=== PATIENT | female | born 1980 | race African-American/Black ===

== ENCOUNTER 2016-12-07 09:56 | Emergency (ER) | payer BC ==
[2016-12-07 10:32] LABS: ABSOLUTE LYMPHOCYTES (AUTO) 1.8 10^3/uL (0.5-4.7); ABSOLUTE MONOCYTES (AUTO) 0.4 10^3/uL (0.1-1.4); ABSOLUTE NEUT (AUTO) 3.5 10^3/uL (1.7-8.2); BASOPHILS % (AUTO) 0.3 % (0-2); EOSINOPHILS % (AUTO) 0.4 % (0-6); HEMATOCRIT 32.5 % (36.0-47.0); HEMOGLOBIN 10.4 g/dL (12.0-15.5); HGB HCT DIFFERENCE -1.3; LYMPHOCYTES % (AUTO) 31.3 % (13-45); MEAN CORPUSCULAR HEMOGLOBIN 26.3 pg (27.0-33.4); MEAN CORPUSCULAR HGB CONC 32.1 g/dL (32.0-36.0); MEAN CORPUSCULAR VOLUME 82 fl (80-97); RED BLOOD COUNT 3.96 10^6/uL (3.72-5.28); RED CELL DISTRIBUTION WIDTH 14.5 % (11.5-14.0); WHITE BLOOD COUNT 5.8 10^3/uL (4.0-10.5)
--- NOTE | 2016-12-07 10:54 | ER Document Report ---
ED Seizure - General Time seen by provider: 11:07 Mode of Arrival: Medic Information source: Patient, Emergency Med Personnel TRAVEL OUTSIDE OF THE [place] IN LAST 30 DAYS: No - HPI Patient complains to provider of: History of seizures Quality of pain: Throbbing Current seizure medications: Other - Depakote Post-ictal symptoms: Headache, Other - jaw pain Injuries: None <NATALIO STEINER - Last Filed: 12/07/16 11:33> <SAMMIE TA - Last Filed: 12/07/16 13:16> - General Chief Complaint: Seizure Stated Complaint: POSSIBLE SEIZURE Notes: Patient is a 36 year old female presenting to the emergency department for a seizure. Patient had multiple seizures at work today. Patient was alert upon EMS arrival and then continued to have more seizures. EMS administered 2.5 versed IM, 2 mg versed IV and valium 10mg ID, prior to arrival. Patient now complains of some jaw pain and a headache which she states is normal for her after having a seizure. Patient is taking Depakote for her seizures. Patient has not had a seizure for a long time; [facility]'s last record of a seizure for this patient was September 2015. Patient states she also takes sleeping pills and she possibly had not gotten enough sleep last night. Patient's primary care physician is Dr. Elmore. Patient complains of no injuries or pain other than the headache and jaw pain. Patient is allergic to lisinopril. (NATALIO STEINER) - Related Data Allergies/Adverse Reactions: lisinopril [Lisinopril] Allergy (Verified 02/24/16 12:32) swelling IVP dye Allergy (Uncoded 02/24/16 12:32) Hives Past Medical History - General Information source: Patient, Emergency Med Personnel - Social History Smoking Status: Unknown if Ever Smoked Family History: DM, Hypertension - Past Medical History Cardiac Medical History: Reports: Hx Hypertension Neurological Medical History: Reports: Hx Seizures Endocrine Medical History: Reports: Hx Diabetes Mellitus Type 2 Psychiatric Medical History: Reports: Hx Bipolar Disorder, Hx Depression Past Surgical History: Reports: Hx Breast Surgery - L lumpectomy, Hx Cholecystectomy, Hx Gastric Bypass Surgery - 2013, Hx Tubal Ligation - Immunizations Hx Diphtheria, Pertussis, Tetanus Vaccination: Yes <NATALIO STEINER - Last Filed: 12/07/16 11:33> Review of Systems - Review of Systems Constitutional: No symptoms reported EENT: See HPI, Other - Jaw pain Cardiovascular: No symptoms reported Respiratory: No symptoms reported Gastrointestinal: No symptoms reported Genitourinary: No symptoms reported Female Genitourinary: No symptoms reported Musculoskeletal: No symptoms reported Skin: No symptoms reported Hematologic/Lymphatic: No symptoms reported Neurological/Psychological: See HPI, Seizure, Headaches -: Yes All other systems reviewed and negative <NATALIO STEINER - Last Filed: 12/07/16 11:33> Physical Exam - Vital signs Interpretation: Normal - General General appearance: Appears well, Alert In distress: Mild - HEENT Head: Normocephalic, Atraumatic, Other - TMJ areas are slightly tender Eyes: Normal Pupils: PERRL Mouth/Lips: Normal, Other - tongue is not chewed or cut into Mucous membranes: Moist Pharynx: Normal - Respiratory Respiratory status: No respiratory distress Chest status: Nontender Breath sounds: Normal Chest palpation: Normal - Cardiovascular Rhythm: Regular Heart sounds: Normal auscultation Murmur: No - Abdominal Inspection: Obese Distension: No distension Bowel sounds: Normal Tenderness: Nontender Organomegaly: No organomegaly - Back Back: Normal, Nontender - Extremities General upper extremity: Normal inspection, Normal ROM, Normal strength General lower extremity: Normal inspection, Normal ROM, Normal strength. No: Edema - Neurological Neuro grossly intact: Yes Cognition: Normal Orientation: AAOx4 [place]ila Coma Scale Eye Opening: Spontaneous [place] Coma Scale Verbal: Oriented [place] Coma Scale Motor: Obeys Commands [place] Coma Scale Total: 15 Speech: Normal - Psychological Associated symptoms: Normal affect, Normal mood - Skin Skin Temperature: Warm Skin Moisture: Dry <NATALIO STEINER - Last Filed: 12/07/16 11:33> <SAMMIE TA - Last Filed: 12/07/16 13:16> - Vital signs Vitals: Resp 19 12/07/16 09:59 (NATALIO STEINER) (SAMMIE TA) Course - Laboratory Result Diagrams: 12/07/16 10:05 12/07/16 10:05 <NATALIO STEINER - Last Filed: 12/07/16 11:33> - Laboratory Result Diagrams: 12/07/16 10:05 12/07/16 10:05 <SAMMIE TA - Last Filed: 12/07/16 13:16> - Vital Signs Vital signs: Temp Pulse Resp BP Pulse Ox 98.3 F 82 14 120/94 H 99 12/07/16 10:17 12/07/16 10:17 12/07/16 11:01 12/07/16 11:01 12/07/16 11:01 (NATALIO STEINER) (SAMMIE TA) - Laboratory Laboratory results interpreted by me: 12/07/16 12/07/16 12/07/16 10:05 10:05 10:05 Hgb 10.4 L Hct 32.5 L MCH 26.3 L RDW 14.5 H Carbon Dioxide 21 L Glucose 126 H Urine Protein Urine Nitrite Ur Leukocyte Esterase Valproic Acid < 10.0 L 12/07/16 11:10 Hgb Hct MCH RDW Carbon Dioxide Glucose Urine Protein 30 H Urine Nitrite POSITIVE H Ur Leukocyte Esterase SMALL H Valproic Acid (NATALIO STEINER) (SAMMIE TA) Discharge <NATALIO STEINER - Last Filed: 12/07/16 11:33> <SAMMIE TA - Last Filed: 12/07/16 13:16> - Discharge Clinical Impression: Seizure, Seizure secondary to subtherapeutic anticonvulsant medication Condition: Stable Disposition: HOME, SELF-CARE Additional Instructions: Seizure, Known Epileptic: You have had a seizure. Seizures may "break through" in an epileptic due to stress of infection or injury, a change in blood chemistry, or drug and alcohol use. Another common cause is failure to take medication as prescribed. Your doctor has evaluated your situation for the likely cause of this seizure. It is important that you follow his advice concerning any medication changes and follow-up care. Further testing of anti-seizure medication levels in your blood may be necessary. If you have a racing driver's license, it's important that you DO NOT DRIVE until given permission by your physician. This seizure must be reported to the racing driver 's license bureau. Call the doctor or return if seizures recur, or if new or unusual symptoms arise -- such as severe headache, confusion, excessive sleepiness, local weakness or numbness, neck stiffness, or fever. //////////////////////////////////////////////////////////////////////////////// //////////////////////////////////////////////////////////////////////////////// //////////////// Your Depakote level was too low to detect by the lab today. This would explain you having a seizure. Be sure to take your Depakote every day as prescribed. Follow-up with Dr. Elmore this week for recheck. RETURN TO THE EMERGENCY ROOM IF ANY NEW OR WORSENING SYMPTOMS. Referrals: PING NAJERA MD [Primary Care Provider] - Follow up as needed Scribe Attestation: 12/07/16 13:16 I personally performed the services described in the documentation, reviewed and edited the documentation which was dictated to the scribe in my presence, and it accurately records my words and actions. (SAMMIE TA) Scribe Documentation - Scribe Written by Scribyina:: Natalio Steiner 12/07/16 11:30 acting as scribe for :: Ale <NATALIO STEINER - Last Filed: 12/07/16 11:33>
[2016-12-07 10:56] LABS: ALBUMIN 4.6 g/dL (3.5-5.0); ANION GAP 19 (5-19); BLOOD UREA NITROGEN 16 mg/dL (7-20); CALCIUM 9.4 mg/dL (8.4-10.2); CARBON DIOXIDE 21 mmol/L (22-30); CHLORIDE 102 mmol/L (98-107); CREATININE RESULT 0.71 mg/dL (0.52-1.25); GLUCOSE 126 mg/dL (75-110); POTASSIUM 3.7 mmol/L (3.6-5.0); SODIUM 141.6 mmol/L (137-145); TOTAL PROTEIN 8.1 g/dL (6.3-8.2)
[2016-12-07 10:59] LABS: ALANINE AMINOTRANSFERASE 17 U/L (9-52); ALCOHOL < 10 mg/dL (NONE DETECTED); ALKALINE PHOSPHATASE 56 U/L (38-126); ASPARTATE AMINO TRANSFERASE 27 U/L (14-36); BILIRUBIN,TOTAL 0.7 mg/dL (0.2-1.3); MAGNESIUM 1.7 mg/dL (1.6-2.3)
[2016-12-07] MEDS ORDERED: KETOROLAC TROMETHAMINE INJ/PF 30 MG/1 ML SDV IV ONE (11:13)
[2016-12-07 11:19] LABS: ADD ON TESTING BLD IN LAB ACKNOWLEDGE
[2016-12-07 11:32] LABS: VALPROIC ACID < 10.0 ug/mL (50.0-120.0)
[2016-12-07 11:40] LABS: APPEARANCE,URINE CLOUDY; BILIRUBIN,URINE NEGATIVE (NEGATIVE); GLUCOSE, URINE NEGATIVE (NEGATIVE); KETONES,URINE NEGATIVE (NEGATIVE); LEUKOCYTE ESTERASE,URINE SMALL (NEGATIVE); NITRITE,URINE POSITIVE (NEGATIVE); PROTEIN,URINE 30 mg/dL (NEGATIVE); URINE SPECIFIC GRAVITY 1.023; UROBILINOGEN,URINE NEGATIVE mg/dL (<2.0)
[2016-12-07 11:45] LABS: URINE BARBITURATES SCREEN NEGATIVE; URINE METHADONE SCREEN NEGATIVE; URINE OPIATES LOW NEGATIVE; URINE PHENCYCLIDINE SCREEN NEGATIVE
[2016-12-07] MEDS ORDERED: VALPROATE SODIUM INJ/PF 500 MG/5 ML SDV IV ONE (12:15)
[2016-12-07 14:00] VITALS: BP 127/84
--- NOTE | 2016-12-07 18:26 | EKG REPORT ---
SEVERITY:- NORMAL ECG - SINUS RHYTHM : Confirmed by: Thiago Flores MD 07-Dec-2016 18:25:37
== END 2016-12-07 14:03 | disposition home or self-care (01) ==
LOC: ER 09:56
DX: R56.9 Unspecified convulsions (principal); R68.84 Jaw pain; R51 Headache; E11.9 Type 2 diabetes mellitus without complications; I10 Essential (primary) hypertension; Z88.8 Allergy status to other drugs, medicaments and biological substances; Z91.041 Radiographic dye allergy status; Z79.899 Other long term (current) drug therapy
CPT/HCPCS: 93005; 99291; 36415; 80307 ×2; 83735; 84703; 85025; 80053; 81001; 80164; 93010; J1885; J3490

== ENCOUNTER 2017-02-23 09:53 | Emergency (ER) | payer BC ==
[2017-02-23] MEDS ORDERED: PHENYTOIN SODIUM INJ/PF 250 MG/5 ML SDV ONE (10:00)
[2017-02-23] MEDS ORDERED: DIVALPROEX SODIUM 250 MG TABLET.DR PO ONE (10:00)
[2017-02-23] MEDS ORDERED: LEVETIRACETAM RTU 1000 MG/NACL-ISO 100 ML IV ONE (10:00)
[2017-02-23] MEDS ORDERED: LORAZEPAM INJ 2 MG/1 ML VIAL ONE ×2 (10:00→10:01)
[2017-02-25 09:42] LABS: BLOOD UREA NITROGEN 16 mg/dL (7-20); CALCIUM 9.6 mg/dL (8.4-10.2); CARBON DIOXIDE 18 mmol/L (22-30); CHLORIDE 102 mmol/L (98-107); CREATININE RESULT 0.76 mg/dL (0.52-1.25); GLUCOSE 96 mg/dL (75-110)
[2017-02-25 09:43] LABS: ANION GAP 21 (5-19); SODIUM 140.6 mmol/L (137-145)
[2017-02-25 09:44] LABS: ALANINE AMINOTRANSFERASE 19 U/L (9-52); ALBUMIN 4.4 g/dL (3.5-5.0); ALKALINE PHOSPHATASE 57 U/L (38-126); ASPARTATE AMINO TRANSFERASE 27 U/L (14-36); BILIRUBIN,TOTAL 0.5 mg/dL (0.2-1.3)
[2017-02-25 09:46] LABS: BILIRUBIN,DIRECT 0.3 mg/dL (0.0-0.4); TOTAL PROTEIN 8.2 g/dL (6.3-8.2); VALPROIC ACID 50.8 ug/mL (50.0-120.0)
== END 2017-02-23 15:05 | disposition home or self-care (01) ==
LOC: ER 09:53
DX: G40.909 Epilepsy, unspecified, not intractable, without status epilepticus (principal); Z79.899 Other long term (current) drug therapy
CPT/HCPCS: 94640; 99285; 96375; 96365; 36415; 84702; 80053; 80164; J2060; J1165; J1953

== ENCOUNTER 2017-06-15 18:39 | Emergency (ER) | payer BC ==
[2017-06-15] MEDS ORDERED: MIDAZOLAM 2 MG/2 ML INJ ONE (19:10)
[2017-06-15 19:14] LABS: ABSOLUTE LYMPHOCYTES (AUTO) 2.4 10^3/uL (0.5-4.7); ABSOLUTE MONOCYTES (AUTO) 0.4 10^3/uL (0.1-1.4); BASOPHILS % (AUTO) 0.4 % (0-2); EOSINOPHILS % (AUTO) 0.6 % (0-6); HEMATOCRIT 28.7 % (36.0-47.0); HEMOGLOBIN 9.2 g/dL (12.0-15.5); HGB HCT DIFFERENCE -1.1; LYMPHOCYTES % (AUTO) 34.4 % (13-45); MEAN CORPUSCULAR HEMOGLOBIN 25.4 pg (27.0-33.4); MEAN CORPUSCULAR HGB CONC 32.1 g/dL (32.0-36.0); MEAN CORPUSCULAR VOLUME 79 fl (80-97); MONOCYTES % (AUTO) 6.4 % (3-13); RED BLOOD COUNT 3.63 10^6/uL (3.72-5.28); RED CELL DISTRIBUTION WIDTH 14.9 % (11.5-14.0); SEGMENTED NEUTROPHILS % (AUTO) 58.2 % (42-78); WHITE BLOOD COUNT 6.9 10^3/uL (4.0-10.5)
[2017-06-15] MEDS ORDERED: LEVETIRACETAM 1500 MG/NACL-ISO 1,500 MG/100 ML RTUPB IV ONE (19:16)
--- NOTE | 2017-06-15 19:16 | ER Document Report ---
ED General - General Chief Complaint: Seizure Stated Complaint: POSSIBLE SEIZURE Time Seen by Provider: 06/15/17 19:09 Cannot obtain history due to: Altered mental status Notes: Patient is a 37-year-old female with a past medical history of seizures who presents after having multiple witnessed seizures today. She was given 5 mg of intramuscular Versed in route with termination of procedure. At time of arrival patient was following commands but not speaking. History is secondarily limited to this. I was called to the room after patient was noted to have generalized shaking in all 4 extremities. No additional history can be obtained as family at the bedside is unaware of what medications the patient takes, her last seizure history, or any additional meaningful information. TRAVEL OUTSIDE OF THE [place] IN LAST 30 DAYS: No - Related Data Allergies/Adverse Reactions: lisinopril [Lisinopril] Allergy (Verified 06/15/17 18:55) swelling IVP dye Allergy (Uncoded 06/15/17 18:55) Hives Past Medical History - General Information source: Relative, Emergency Med Personnel - Social History Smoking Status: Never Smoker Frequency of alcohol use: None Drug Abuse: None Lives with: Family Family History: DM, Hypertension - Past Medical History Cardiac Medical History: Reports: Hx Hypertension Neurological Medical History: Reports: Hx Seizures Endocrine Medical History: Reports: Hx Diabetes Mellitus Type 2 Renal/ Medical History: Denies: Hx Peritoneal Dialysis Psychiatric Medical History: Reports: Hx Bipolar Disorder, Hx Depression Past Surgical History: Reports: Hx Abdominal Surgery - gastric bypass 08/2014, Hx Breast Surgery - L lumpectomy, Hx Cholecystectomy, Hx Gastric Bypass Surgery - 2013, Hx Tubal Ligation - Immunizations Hx Diphtheria, Pertussis, Tetanus Vaccination: Yes Review of Systems - Review of Systems -: Yes ROS unobtainable due to patient's medical condition Physical Exam - Vital signs Vitals: Resp Pulse Ox 16 99 06/15/17 18:52 06/15/17 18:52 Interpretation: Normal Notes: PHYSICAL EXAMINATION: GENERAL: Initially unresponsive, having generalized shaking in all 4 extremities. HEAD: Atraumatic, normocephalic. EYES: Pupils equal round and reactive to light, extraocular movements intact, sclera anicteric, conjunctiva are normal. ENT: nares patent, oropharynx clear without exudates. Moist mucous membranes. NECK: Normal range of motion, supple without lymphadenopathy LUNGS: Breath sounds clear to auscultation bilaterally and equal. No wheezes rales or rhonchi. HEART: Regular rate and rhythm without murmurs ABDOMEN: Soft, nontender, normoactive bowel sounds. No guarding, no rebound. No masses appreciated. EXTREMITIES: no pitting or edema. No cyanosis. NEUROLOGICAL: After initial shaking episode, no focal neurological deficits. Moves all extremities spontaneously and on command. PSYCH: Initially unresponsive SKIN: Warm, Dry, normal turgor, no rashes or lesions noted. Course - Re-evaluation Re-evalutation: 06/15/17 19:15 Presentation of well-appearing patient after having a seizure. Patient has a known history of seizures. No obvious trigger for today's episode. Patient did have an additional possible seizure here in the emergency department although it appeared to be more consistent with PNES as patient had no significant postictal state, following commands immediately upon termination of her shaking in all extremities. No focal neurologic deficits. No infectious symptoms, vital sign abnormalities, or evidence of trauma. No indication for laboratories or imaging based on reassuring evaluation and known history of seizures and possibly pseudoseizures as well. However, labs were ordered prior to my assessment of this patient's I will follow-up on these. Will also order a valproic acid level as patient is apparently taking this medication for seizure control. 06/15/17 19:47 Patient is now awake, alert and oriented. Labs unremarkable. Valproic acid levels pending. She states that her typical trigger is a migraine headache which she does note that she is having right now. Will also treat this. Will continue to reassess and plan for discharge patient remains without any further seizure activity. 06/15/17 20:10 Valproic acid level undetectable. Apparently patient has discontinued this medication was started on alternative medication but could not afford it. I have encouraged her to follow-up with her neurologist. At this time will discharge with return precautions and follow-up recommendations. Verbal discharge instructions given a the bedside and opportunity for questions given. Medication warnings reviewed. Patient is in agreement with this plan and has verbalized understanding of return precautions and the need for primary care follow-up in the next 24-72 hours. - Vital Signs Vital signs: Temp Pulse Resp BP Pulse Ox 98.0 F 74 18 142/83 H 100 06/15/17 18:54 06/15/17 18:54 06/15/17 19:08 06/15/17 19:08 06/15/17 19:08 - Laboratory Result Diagrams: 06/15/17 19:02 06/15/17 19:02 Laboratory results interpreted by me: 06/15/17 06/15/17 19:02 19:02 RBC 3.63 L Hgb 9.2 L Hct 28.7 L MCV 79 L MCH 25.4 L RDW 14.9 H Valproic Acid < 10.0 L Discharge - Discharge Clinical Impression: Seizure Condition: Good Disposition: HOME, SELF-CARE Additional Instructions: Today you had a seizure. It is very important that you do not engage in any activities that could result in severe injury should you have a seizure. Specifically, do not drive a vehicle, go into a body of water, take a bath, climb ladders, or operate any heavy machinery until you have been cleared by your neurologist. Please return to the ED immediately if you have multiple seizures close together, develop a severe headache, weakness, numbness, difficulty speaking, have a seizure in which you do not return to normal within 1 hour of the seizure, or have any other symptoms that are concerning to you. Prescriptions: Levetiracetam [Keppra 500 mg Tablet] 500 mg PO Q12 #60 tablet
[2017-06-15 19:28] LABS: ALANINE AMINOTRANSFERASE 25 U/L (9-52); ALBUMIN 4.1 g/dL (3.5-5.0); ALCOHOL < 10 mg/dL (NONE DETECTED); ALKALINE PHOSPHATASE 55 U/L (38-126); ANION GAP 12 (5-19); ASPARTATE AMINO TRANSFERASE 24 U/L (14-36); BILIRUBIN,DIRECT 0.3 mg/dL (0.0-0.4); BILIRUBIN,TOTAL 0.7 mg/dL (0.2-1.3); BLOOD UREA NITROGEN 9 mg/dL (7-20); CALCIUM 9.3 mg/dL (8.4-10.2); CARBON DIOXIDE 26 mmol/L (22-30); CHLORIDE 102 mmol/L (98-107); CREATININE RESULT 0.69 mg/dL (0.52-1.25); GLUCOSE 84 mg/dL (75-110); MAGNESIUM 1.8 mg/dL (1.6-2.3); POTASSIUM 3.7 mmol/L (3.6-5.0); SODIUM 140.2 mmol/L (137-145); TOTAL PROTEIN 7.5 g/dL (6.3-8.2)
[2017-06-15] MEDS ORDERED: PROCHLORPERAZINE EDISYLATE INJ 10 MG/2 ML VIAL IV ONE (19:44)
[2017-06-15] MEDS ORDERED: KETOROLAC TROMETHAMINE INJ/PF 30 MG/1 ML SDV IV ONE (19:44)
--- NOTE | 2017-06-15 19:47 | EKG REPORT ---
SEVERITY:- NORMAL ECG - SINUS RHYTHM : Confirmed by: Thiago Flores MD 15-Jun-2017 19:47:19
[2017-06-15 22:16] VITALS: BP 109/83
== END 2017-06-15 22:16 | disposition home or self-care (01) ==
LOC: ER 18:39
DX: R56.9 Unspecified convulsions (principal); Z79.899 Other long term (current) drug therapy
CPT/HCPCS: 99285; 96374; 96375; 36415; 80307; 83735; 84703; 85025; 80053; 80164; 93005; 93010; J1885; J0780; J1953

== ENCOUNTER → 2017-09-08 | Outpatient (CLI) | payer BC ==
[2017-09-08 18:06] LABS: CHLAM PCR NOT DETECTED (NOT DETECT)
== END ==
LOC: LAB 16:29
PROVIDERS: ATTEND Nurse Practitioner Acute Care
DX: N89.8 Other specified noninflammatory disorders of vagina (principal); R30.0 Dysuria
CPT/HCPCS: 87086; 87088; 87186; 87210; 87491; 87591

== ENCOUNTER 2018-10-12 15:36 | Emergency (ER) | payer BC ==
--- NOTE | 2018-10-12 18:30 | ER Document Report ---
ED Medical Screen (RME) - General Chief Complaint: Flank Pain Stated Complaint: BACK PAIN, DIFFICULTY BREATHING Time Seen by Provider: 10/12/18 18:28 TRAVEL OUTSIDE OF THE [place] IN LAST 30 DAYS: No - HPI Patient complains to provider of: Back pain Onset: Other - 38-year-old female presents for evaluation of back pain. She notes that she began to have some pain earlier today while at work. The pain there progress she went to the bathroom see if she is having a blood in her urine should she felt like it could be her kidney that was hurting which prompted her to come the emergency room for further evaluation. She denies any fevers or chills, does endorse some body aches, does endorse some polyuria without any episodes of emesis fevers or chills. - Related Data Allergies/Adverse Reactions: lisinopril [Lisinopril] Allergy (Verified 10/12/18 15:37) swelling IVP dye Allergy (Uncoded 10/12/18 15:37) Hives Past Medical History - General Information source: Patient - Social History Cigarette use (# per day): No Chew tobacco use (# tins/day): No Frequency of alcohol use: None Drug Abuse: None - Past Medical History Cardiac Medical History: Reports: Hx Hypertension Neurological Medical History: Reports: Hx Seizures Endocrine Medical History: Reports: Hx Diabetes Mellitus Type 2 Renal/ Medical History: Denies: Hx Peritoneal Dialysis Psychiatric Medical History: Reports: Hx Bipolar Disorder, Hx Depression Past Surgical History: Reports: Hx Abdominal Surgery - gastric bypass 08/2014, Hx Breast Surgery - L lumpectomy, Hx Cholecystectomy, Hx Gastric Bypass Surgery - 2013, Hx Tubal Ligation - Immunizations Hx Diphtheria, Pertussis, Tetanus Vaccination: Yes Review of Systems - Review of Systems -: Yes All other systems reviewed and negative Physical Exam - Vital signs Vitals: Temp Pulse Resp BP Pulse Ox 98.7 F 80 14 136/84 H 100 10/12/18 15:41 10/12/18 15:41 10/12/18 15:41 10/12/18 15:41 10/12/18 15:41 Interpretation: Normal - General General appearance: Appears well, Alert - HEENT Head: Normocephalic, Atraumatic Eyes: Normal Pupils: PERRL - Respiratory Respiratory status: No respiratory distress Chest status: Nontender Breath sounds: Normal Chest palpation: Normal - Cardiovascular Rhythm: Regular Heart sounds: Normal auscultation Murmur: No - Abdominal Inspection: Normal Distension: No distension Bowel sounds: Normal Tenderness: Nontender Organomegaly: No organomegaly - Back Back: Tender - Marked tenderness along the left chest wall extending from the paraspinal muscles along the eighth and ninth ribs - Extremities General upper extremity: Normal inspection, Nontender, Normal color, Normal ROM, Normal temperature General lower extremity: Normal inspection, Nontender, Normal color, Normal ROM, Normal temperature, Normal weight bearing. No: Jackson's sign - Neurological Neuro grossly intact: Yes Cognition: Normal Orientation: AAOx4 Sheila Coma Scale Eye Opening: Spontaneous [place] Coma Scale Verbal: Oriented [place] Coma Scale Motor: Obeys Commands [place] Coma Scale Total: 15 Speech: Normal Motor strength normal: LUE, RUE, LLE, RLE Sensory: Normal - Psychological Associated symptoms: Normal affect, Normal mood - Skin Skin Temperature: Warm Skin Moisture: Dry Skin Color: Normal Course - Re-evaluation Re-evalutation: 10/12/18 20:45 38-year-old female presents for evaluation of left-sided flank pain. She is not somebody who is a history of kidney stones in the past, has had an episode of cystitis in the past but is never really had anything like this. We will obtain urinalysis, she does have CVA tenderness along left side to to touch. Urinalysis is almost entirely normal. We will send urine for culture. Placed a Lidoderm patch on patient's back, on reassessment she is marked tend erness in the musculature along the left back. Do not believe this represents a more serious underlying pathology such as but not limited to pancreatitis, appendicitis, cholecystitis, pulmonary embolism otherwise. She is otherwise well-appearing with reassuring vital signs here. We will attempt to obtain control of her pain utilizing Motrin and Tylenol at home as well as Lidoderm patches topically. - Vital Signs Vital signs: Temp Pulse Resp BP Pulse Ox 98.7 F 80 14 136/84 H 100 10/12/18 15:41 10/12/18 15:41 10/12/18 15:41 10/12/18 15:41 10/12/18 15:41 Doctor's Discharge - Discharge Clinical Impression: Flank pain Back pain Qualifiers: Back pain location: back pain in unspecified location Chronicity: unspecified Back pain laterality: unspecified Qualified Code(s): M54.9 - Dorsalgia, unspecified Condition: Good Disposition: HOME, SELF-CARE Instructions: Flank Pain ([facility]) Additional Instructions: You were seen today in the emergency department for your flank pain. You had an evaluation including a physical exam, and observation., As well as tests of your urine. It does not appear that you have a kidney infection at this time though your urine will be sent for a culture to make sure that no bacteria grow out of it. You have been given medication to help with your back pain. Use the medication as needed. In addition take Tylenol 1 g every 8 hours, take ibuprofen 400 mg every 6-8 hours as needed as well. Because of your previous surgery make sure you are taking food with this medication. Please return if you do not have any improvement in your symptoms in the next 2- 3 days. Schedule appointment with your doctor to follow-up about this pain. If you have worsening fevers or chills or unable to eat or drink he should return the emergency room because it could be a more serious condition. Prescriptions: Acetaminophen [Tylenol] 975 mg PO Q6 PRN #30 capsule PRN Reason: Cyclobenzaprine HCl [Flexeril 10 mg Tablet] 10 mg PO TIDP PRN #15 tab PRN Reason: Lidocaine HCl [Xylocaine] 35 gm TP BID #1 oint..gm. Forms: Return to Work Referrals: LAXMI HOLGUIN, IVAN [Primary Care Provider] - Follow up as needed
[2018-10-12 18:48] LABS: APPEARANCE,URINE CLEAR; BILIRUBIN,URINE NEGATIVE (NEGATIVE); COLOR,URINE YELLOW; GLUCOSE, URINE NEGATIVE (NEGATIVE); KETONES,URINE NEGATIVE (NEGATIVE); LEUKOCYTE ESTERASE,URINE NEGATIVE (NEGATIVE); NITRITE,URINE NEGATIVE (NEGATIVE); PROTEIN,URINE NEGATIVE (NEGATIVE); URINE SPECIFIC GRAVITY 1.017; UROBILINOGEN,URINE NEGATIVE mg/dL (<2.0)
[2018-10-12] MEDS ORDERED: LIDOCAINE 5% (700 MG) TRANSDERMAL ADH..PATCH TP ONE (19:03)
[2018-10-12] MEDS ORDERED: KETOROLAC TROMETHAMINE 60 MG/2 ML SDV IM ONE (19:03)
[2018-10-12 21:04] VITALS: BP 138/76
== END 2018-10-12 21:04 | disposition home or self-care (01) ==
LOC: ER 15:36
DX: R10.9 Unspecified abdominal pain (principal); R06.00 Dyspnea, unspecified; M54.9 Dorsalgia, unspecified; I10 Essential (primary) hypertension; E11.9 Type 2 diabetes mellitus without complications; Z98.84 Bariatric surgery status; Z90.49 Acquired absence of other specified parts of digestive tract; Z98.51 Tubal ligation status; Z87.442 Personal history of urinary calculi
CPT/HCPCS: 99284; 96372; 87086; 81001; J1885

== ENCOUNTER 2019-10-30 10:13 | Emergency (ER) | payer BC ==
--- NOTE | 2019-10-30 10:55 | ER Document Report ---
ED Medical Screen (RME) - General Chief Complaint: Shortness Of Breath Stated Complaint: SHORTNESS OF BREATH/DIZZINESS Time Seen by Provider: 10/30/19 10:53 Mode of Arrival: Wheelchair Information source: [facility] Records Notes: Patient arrived into the pit one via wheelchair and immediately started having a seizure. She was lowered out of the wheelchair onto the floor. She did not hit her head. Review of old medical records notes history of diabetes and seizures. Patient was incontinent of urine during seizure. Selina RN reports patient noted dizziness starting at 830 this morning. No other history obtained from patient. I have greeted and performed a rapid initial assessment of this patient. A comprehensive ED assessment and evaluation of the patient, analysis of test results and completion of the medical decision making process will be conducted by additional ED providers. TRAVEL OUTSIDE OF THE [place] IN LAST 30 DAYS: No - Related Data Allergies/Adverse Reactions: lisinopril [Lisinopril] Allergy (Verified 10/30/19 10:47) swelling IVP dye Allergy (Uncoded 10/30/19 10:47) Hives Past Medical History - Past Medical History Cardiac Medical History: Reports: Hx Hypertension Neurological Medical History: Reports: Hx Seizures Endocrine Medical History: Reports: Hx Diabetes Mellitus Type 2 Renal/ Medical History: Denies: Hx Peritoneal Dialysis Psychiatric Medical History: Reports: Hx Bipolar Disorder, Hx Depression Past Surgical History: Reports: Hx Abdominal Surgery - gastric bypass 08/2014, Hx Breast Surgery - L lumpectomy, Hx Cholecystectomy, Hx Gastric Bypass Surgery - 2013, Hx Tubal Ligation - Immunizations Hx Diphtheria, Pertussis, Tetanus Vaccination: Yes Physical Exam - Vital signs Vitals: Temp Pulse Resp BP Pulse Ox 98.6 F 92 18 160/92 H 100 10/30/19 10:37 10/30/19 10:37 10/30/19 10:37 10/30/19 10:37 10/30/19 10:37 Course - Vital Signs Vital signs: Temp Pulse Resp BP Pulse Ox 98.6 F 92 18 160/92 H 100 10/30/19 10:37 10/30/19 10:37 10/30/19 10:37 10/30/19 10:37 10/30/19 10:37
[2019-10-30 11:23] LABS: ABSOLUTE EOSINOPHILS # (AUTO) 0.1 10^3/uL (0.0-0.6); ABSOLUTE LYMPHOCYTES (AUTO) 2.9 10^3/uL (0.5-4.7); ABSOLUTE MONOCYTES (AUTO) 0.6 10^3/uL (0.1-1.4); ABSOLUTE NEUT (AUTO) 4.9 10^3/uL (1.7-8.2); BASOPHILS % (AUTO) 0.4 % (0-2); EOSINOPHILS % (AUTO) 0.8 % (0-6); HEMATOCRIT 35.1 % (36.0-47.0); HEMOGLOBIN 11.7 g/dL (12.0-15.5); LYMPHOCYTES % (AUTO) 34.4 % (13-45); MEAN CORPUSCULAR HEMOGLOBIN 27.8 pg (27.0-33.4); MEAN CORPUSCULAR HGB CONC 33.4 g/dL (32.0-36.0); MEAN CORPUSCULAR VOLUME 83 fl (80-97); PLATELET COUNT 347 10^3/uL (150-450); RED BLOOD COUNT 4.22 10^6/uL (3.72-5.28); RED CELL DISTRIBUTION WIDTH 14.3 % (11.5-14.0); SEGMENTED NEUTROPHILS % (AUTO) 57.4 % (42-78); TOTAL CELLS COUNTED % (AUTO) 100 %; WHITE BLOOD COUNT 8.6 10^3/uL (4.0-10.5)
[2019-10-30 11:44] LABS: VENOUS BLOOD BASE EXCESS -9.1 mmol/L; VENOUS BLOOD HCO3 14.8 mmol/L (20-32); VENOUS BLOOD PCO2 26.4 mmHg (35-63); VENOUS BLOOD PH 7.37 (7.30-7.42)
[2019-10-30 11:46] LABS: ALBUMIN 4.9 g/dL (3.5-5.0); ALKALINE PHOSPHATASE 61 U/L (38-126); ANION GAP 15 (5-19); ASPARTATE AMINO TRANSFERASE 28 U/L (14-36); BILIRUBIN,DIRECT 0.3 mg/dL (0.0-0.4); BILIRUBIN,TOTAL 0.3 mg/dL (0.2-1.3); BLOOD UREA NITROGEN 16 mg/dL (7-20); CARBON DIOXIDE 22 mmol/L (22-30); CHLORIDE 103 mmol/L (98-107); GLUCOSE 100 mg/dL (75-110); POTASSIUM 4.4 mmol/L (3.6-5.0); TOTAL PROTEIN 8.8 g/dL (6.3-8.2)
[2019-10-30] MEDS ORDERED: MECLIZINE HCL 25 MG TABLET PO ONE (11:47)
[2019-10-30] MEDS ORDERED: ONDANSETRON HCL INJ/PF 4 MG/2 ML SDV IV ONE (11:47)
--- NOTE | 2019-10-30 11:56 | ER Document Report ---
Entered by CLAU WRIGHT SCRIBE 10/30/19 1132 Acting as scribe for:SAMMIE TA MD ED General - General Chief Complaint: Fainting Stated Complaint: SHORTNESS OF BREATH/DIZZINESS Time Seen by Provider: 10/30/19 10:53 Primary Care Provider: KRISTIE MOMIN PA [Primary Care Provider] - Follow up as needed Mode of Arrival: Wheelchair Information source: Patient Notes: This 39 year old female patient with a history of seizures and diabetes presents to the ED today with complaints of dizziness that began around 8:30 AM this morning. 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 Patient states that she feels better when she puts her head down and closes her eyes, but if they are closed too long, she gets dizzy again. Patient had a seizure in [facility] upon arrival per the ED nurse. Patient states that she has had similar symptoms x2-3 patterson ago, but at that time she also had nausea and vomiting associated with it. She was taken off medications for her seizures by her PCP recently. Patient denies nausea, vomiting, diarrhea, or fever. Patient did fill prescription for trazodone to help with sleeping yesterday, and took a dose last night. She also filled a prescription for alprazolam for anxiety but has not taken any of that medication. TRAVEL OUTSIDE OF THE [place] IN LAST 30 DAYS: No - Related Data Allergies/Adverse Reactions: lisinopril [Lisinopril] Allergy (Verified 10/30/19 10:47) swelling IVP dye Allergy (Uncoded 10/30/19 10:47) Hives Past Medical History - General Information source: Patient, [facility] Records - Social History Smoking Status: Former Smoker Cigarette use (# per day): No Chew tobacco use (# tins/day): No Smoking Education Provided: No Frequency of alcohol use: Occasional Drug Abuse: None Family History: Reviewed & Not Pertinent, DM, Hypertension Patient has suicidal ideation: No Patient has homicidal ideation: No - Past Medical History Cardiac Medical History: Reports: Hx Hypertension Neurological Medical History: Reports: Hx Seizures Endocrine Medical History: Reports: Hx Diabetes Mellitus Type 2 Psychiatric Medical History: Reports: Hx Bipolar Disorder, Hx Depression Past Surgical History: Reports: Hx Abdominal Surgery - gastric bypass 08/2014, Hx Breast Surgery - L lumpectomy, Hx Cholecystectomy, Hx Gastric Bypass Surgery - 2013, Hx Tubal Ligation - Immunizations Hx Diphtheria, Pertussis, Tetanus Vaccination: Yes Review of Systems - Review of Systems Constitutional: See HPI. denies: Fever EENT: No symptoms reported Cardiovascular: See HPI, Dizziness Respiratory: No symptoms reported Gastrointestinal: See HPI. denies: Diarrhea, Nausea, Vomiting Genitourinary: No symptoms reported Female Genitourinary: No symptoms reported Musculoskeletal: No symptoms reported Skin: No symptoms reported Hematologic/Lymphatic: No symptoms reported Neurological/Psychological: See HPI, Seizure Physical Exam - Vital signs Vitals: Temp Pulse Resp BP Pulse Ox 98.6 F 92 18 160/92 H 100 10/30/19 10:37 10/30/19 10:37 10/30/19 10:37 10/30/19 10:37 10/30/19 10:37 - General General appearance: Alert - HEENT Head: Normocephalic, Atraumatic Eyes: Other - Bilateral lateral nystagmus Pupils: PERRL - Respiratory Respiratory status: No respiratory distress Chest status: Nontender Breath sounds: Normal Chest palpation: Normal - Cardiovascular Rhythm: Regular Heart sounds: Normal auscultation Murmur: No - Abdominal Inspection: Normal Distension: No distension Bowel sounds: Normal Tenderness: Nontender Organomegaly: No organomegaly - Back Back: Normal, Nontender - Extremities General upper extremity: Normal inspection General lower extremity: Normal inspection - Neurological Neuro grossly intact: Yes - Psychological Associated symptoms: Normal affect, Normal mood - Skin Skin Temperature: Warm Skin Moisture: Dry Skin Color: Normal Course - Re-evaluation Re-evalutation: 10/30/19 13:22 Patient reports that her dizziness is better at this time. She was able to sit up and look about without provoking the severe room spinning sensation she had earlier. 10/30/19 13:23 Shortly after the patient first went into the room, she had what 1 nurse observed and described as a pseudoseizure. When I did see the patient, she did not seem postictal. 10/30/19 13:30 The nurse did tell me that the significant other told her, that the patient told him that she miscarried a week ago and was seen here at this emergency room. There is no record of her having been here, I did a quantitative hCG and it is 0. 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 - Vital Signs Vital signs: Temp Pulse Resp BP Pulse Ox 98.6 F 92 16 122/89 H 96 10/30/19 10:37 10/30/19 10:37 10/30/19 12:32 10/30/19 12:32 10/30/19 12:32 - Laboratory Result Diagrams: 10/30/19 11:05 10/30/19 11:05 Laboratory results interpreted by me: 10/30/19 10/30/19 10/30/19 11:05 11:05 11:30 Hgb 11.7 L Hct 35.1 L RDW 14.3 H VBG pCO2 26.4 L VBG HCO3 14.8 L Total Protein 8.8 H Valproic Acid < 10.0 L Discharge - Discharge Clinical Impression: Vertigo Condition: Stable Disposition: HOME, SELF-CARE Additional Instructions: Vertigo: You have experienced an episode of vertigo -- a whirling dizziness which may be accompanied by nausea and vomiting or staggering. Vertigo is often caused by an irritation of the inner ear, in which case it is called labyrinthitis. It can also be a symptom of a degenerating inner ear, nerve damage, or brain injury. Your physician has evaluated you to determine whether any further testing is necessary. Vertigo is often treated with dramamine or meclizine. These medications are helpful, but stronger medication may be needed if you are vomiting. Rest in bed. You should not drive or operate machinery until completely better. It may take one to three weeks for recovery. If there are new symptoms, such as decreased hearing or vision, severe headache, weakness or faintness, or confusion, call the physician. Take the medications as prescribed for dizziness. Get plenty of rest today. Drink plenty of fluids. Follow-up with your primary care provider if not improving over the next few days. RETURN TO THE EMERGENCY ROOM IF ANY NEW OR WORSENING SYMPTOMS. Prescriptions: Meclizine HCl [Antivert 25 mg Tablet] 25 mg PO TID PRN #30 tablet PRN Reason: Forms: Return to Work Referrals: KRISTIE MOMIN PA [Primary Care Provider] - Follow up as needed Scribe Attestation: 10/30/19 13:24 I personally performed the services described in the documentation, reviewed and edited the documentation which was dictated to the scribe in my presence, and it accurately records my words and actions. I personally performed the services described in the documentation, reviewed and edited the documentation which was dictated to the scribe in my presence, and it accurately records my words and actions.
[2019-10-30 12:44] LABS: APPEARANCE,URINE CLEAR; BILIRUBIN,URINE NEGATIVE (NEGATIVE); COLOR,URINE YELLOW; GLUCOSE, URINE NEGATIVE (NEGATIVE); KETONES,URINE NEGATIVE (NEGATIVE); LEUKOCYTE ESTERASE,URINE NEGATIVE (NEGATIVE); NITRITE,URINE NEGATIVE (NEGATIVE); PROTEIN,URINE NEGATIVE (NEGATIVE); UROBILINOGEN,URINE NEGATIVE mg/dL (<2.0)
[2019-10-30 13:01] LABS: URINE AMPHETAMINES SCREEN NEGATIVE; URINE BARBITURATES SCREEN NEGATIVE; URINE BENZODIAZEPINES SCREEN NEGATIVE; URINE COCAINE SCREEN NEGATIVE; URINE MARIJUANA (THC) SCREEN NEGATIVE; URINE METHADONE SCREEN NEGATIVE; URINE PHENCYCLIDINE SCREEN NEGATIVE
[2019-10-30 13:39] VITALS: BP 122/84
--- NOTE | 2019-10-30 13:55 | EKG REPORT ---
SEVERITY:- BORDERLINE ECG - ECTOPIC ATRIAL RHYTHM BORDERLINE T ABNORMALITIES, DIFFUSE LEADS : Confirmed by: Thiago Flores MD 30-Oct-2019 13:54:38
== END 2019-10-30 13:38 | disposition home or self-care (01) ==
LOC: ER 10:13
DX: R42 Dizziness and giddiness (principal); R55 Syncope and collapse; R06.02 Shortness of breath; R56.9 Unspecified convulsions; E11.9 Type 2 diabetes mellitus without complications; Z79.899 Other long term (current) drug therapy; Z87.891 Personal history of nicotine dependence; I10 Essential (primary) hypertension
CPT/HCPCS: 93005; 99284; 96374; 36415; 82962; 84702; 83735; 85025; 81025; 80053; 81001; 80164; 80307; 82803; 93010; J2405

== ENCOUNTER 2019-11-07 17:07 | Emergency (ER) | payer BC ==
--- NOTE | 2019-11-07 17:39 | ER Document Report ---
ED Medical Screen (RME) - General Chief Complaint: Breathing Difficulty Stated Complaint: SHORTNESS OF BREATH Time Seen by Provider: 11/07/19 17:32 Primary Care Provider: KRISTIE MOMIN PA [Primary Care Provider] - Follow up as needed Mode of Arrival: Ambulatory Information source: Patient Notes: 39-year-old female sent to ED for cough congestion chest pain and sore throat a week. She states she was seen about a week ago and she was told it was vertigo when she passed out. She states she has progressively gotten worse become more short of breath more pain denies any fevers. She states her voice does hurt. She denies any history of asthma bronchitis or COPD. States she does not smoke cigarettes. She states she drinks once a month but does not use any illicit drugs. Patient is alert and oriented. States she has not had any fevers at all. She states she suddenly got short of breath about 2:00 while she was at her daughter's appointment. They sent her back home to the doctors. She went over to the doctors office at at [facility] and they sent her to the emergency room to get a CAT scan to rule out a pulmonary emboli due to sudden onset of shortness of breath tachycardia and chest discomfort. Patient does have diabetes well score is low probability for a PE with 1.5 points and 1.3% chance of a PE. Will get chest x-ray and blood work and have patient examined by a provider. I have greeted and performed a rapid initial assessment of this patient. A comprehensive ED assessment and evaluation of the patient, analysis of test results and completion of medical decision making process will be conducted by an additional ED providers. TRAVEL OUTSIDE OF THE [place] IN LAST 30 DAYS: No - Related Data Allergies/Adverse Reactions: lisinopril [Lisinopril] Allergy (Verified 11/07/19 17:31) swelling IVP dye Allergy (Uncoded 11/07/19 17:31) Hives Past Medical History - Past Medical History Cardiac Medical History: Reports: Hx Hypertension Neurological Medical History: Reports: Hx Seizures Endocrine Medical History: Reports: Hx Diabetes Mellitus Type 2 Renal/ Medical History: Denies: Hx Peritoneal Dialysis Psychiatric Medical History: Reports: Hx Bipolar Disorder, Hx Depression Past Surgical History: Reports: Hx Abdominal Surgery - gastric bypass 08/2014, Hx Breast Surgery - L lumpectomy, Hx Cholecystectomy, Hx Gastric Bypass Surgery - 2013, Hx Tubal Ligation - Immunizations Hx Diphtheria, Pertussis, Tetanus Vaccination: Yes Physical Exam - Vital signs Vitals: Temp Pulse Resp BP Pulse Ox 98.9 F 102 H 30 H 142/85 H 100 11/07/19 17:11 11/07/19 17:11 11/07/19 17:11 11/07/19 17:11 11/07/19 17:11 Course - Vital Signs Vital signs: Temp Pulse Resp BP Pulse Ox 98.9 F 102 H 30 H 142/85 H 100 11/07/19 17:11 11/07/19 17:11 11/07/19 17:11 11/07/19 17:11 11/07/19 17:11 Doctor's Discharge - Discharge Referrals: KRISTIE MMOIN PA [Primary Care Provider] - Follow up as needed
[2019-11-07] MEDS ORDERED: ASPIRIN 81 MG TABLET, CHEWABLE PO ONE (17:51)
[2019-11-07 18:34] LABS: ABSOLUTE EOSINOPHILS # (AUTO) 0.1 10^3/uL (0.0-0.6); ABSOLUTE LYMPHOCYTES (AUTO) 2.6 10^3/uL (0.5-4.7); ABSOLUTE MONOCYTES (AUTO) 0.7 10^3/uL (0.1-1.4); ABSOLUTE NEUT (AUTO) 5.5 10^3/uL (1.7-8.2); BASOPHILS % (AUTO) 0.5 % (0-2); EOSINOPHILS % (AUTO) 0.6 % (0-6); HEMATOCRIT 34.7 % (36.0-47.0); HEMOGLOBIN 11.4 g/dL (12.0-15.5); LYMPHOCYTES % (AUTO) 29.4 % (13-45); MEAN CORPUSCULAR HEMOGLOBIN 27.4 pg (27.0-33.4); MEAN CORPUSCULAR HGB CONC 32.9 g/dL (32.0-36.0); MEAN CORPUSCULAR VOLUME 83 fl (80-97); MONOCYTES % (AUTO) 8.2 % (3-13); PLATELET COUNT 329 10^3/uL (150-450); RED BLOOD COUNT 4.16 10^6/uL (3.72-5.28); RED CELL DISTRIBUTION WIDTH 14.8 % (11.5-14.0); SEGMENTED NEUTROPHILS % (AUTO) 61.3 % (42-78); TOTAL CELLS COUNTED % (AUTO) 100 %
[2019-11-07 18:39] LABS: APPEARANCE,URINE CLEAR; BILIRUBIN,URINE NEGATIVE (NEGATIVE); COLOR,URINE YELLOW; GLUCOSE, URINE NEGATIVE (NEGATIVE); KETONES,URINE 20 mg/dL (NEGATIVE); PROTEIN,URINE NEGATIVE (NEGATIVE); URINE SPECIFIC GRAVITY 1.018
--- NOTE | 2019-11-07 18:47 | RADIOLOGY REPORT (SQ) ---
EXAM DESCRIPTION: CHEST 2 VIEWS COMPLETED DATE/TIME: 11/07/2019 6:25 pm REASON FOR STUDY: Cheat pain COMPARISON: 09/15/2014 EXAM PARAMETERS: NUMBER OF VIEWS: two views TECHNIQUE: Digital Frontal and Lateral radiographic views of the chest acquired. RADIATION DOSE: NA LIMITATIONS: none FINDINGS: LUNGS AND PLEURA: No opacities, masses or pneumothorax. No pleural effusion. MEDIASTINUM AND HILAR STRUCTURES: No masses or contour abnormalities. HEART AND VASCULAR STRUCTURES: Heart normal size. No evidence for failure. BONES: No acute findings. HARDWARE: None in the chest. OTHER: No other significant finding. IMPRESSION: NO ACUTE RADIOGRAPHIC FINDING IN THE CHEST. TECHNICAL DOCUMENTATION: JOB ID: [id number] [employer]- All Rights Reserved Reading location - IP/workstation name: [email or web address]
[2019-11-07 18:51] LABS: ALBUMIN 4.8 g/dL (3.5-5.0); ALKALINE PHOSPHATASE 64 U/L (38-126); ANION GAP 13 (5-19); ASPARTATE AMINO TRANSFERASE 30 U/L (14-36); BILIRUBIN,DIRECT 0.3 mg/dL (0.0-0.4); BILIRUBIN,TOTAL 0.5 mg/dL (0.2-1.3); BLOOD UREA NITROGEN 12 mg/dL (7-20); CALCIUM 9.4 mg/dL (8.4-10.2); CARBON DIOXIDE 25 mmol/L (22-30); CHLORIDE 100 mmol/L (98-107); GLUCOSE 115 mg/dL (75-110); POTASSIUM 4.1 mmol/L (3.6-5.0); TOTAL PROTEIN 8.5 g/dL (6.3-8.2)
[2019-11-07] MEDS ORDERED: DIPHENHYDRAMINE HCL 50 MG/ML VIAL IV ONE (20:43)
[2019-11-07] MEDS ORDERED: METHYLPREDNISOLONE INJ 125 MG/2 ML SDV IV ONE (20:43)
[2019-11-07] MEDS ORDERED: BENZONATATE 100 MG CAPSULE PO ONE (20:50)
[2019-11-07] MEDS ORDERED: NORMAL SALINE 1000 ML 1,000 ML IV ONE (20:50)
--- NOTE | 2019-11-07 20:57 | ER Document Report ---
ED General - General Chief Complaint: Breathing Difficulty Stated Complaint: SHORTNESS OF BREATH Time Seen by Provider: 11/07/19 17:32 Primary Care Provider: KRISTIE MOMIN PA [Primary Care Provider] - Follow up as needed Mode of Arrival: Ambulatory Notes: 39-year-old female presents for chest pain and dyspnea. Patient states this started while she was at her daughter's appointment and went to [facility] who sent her over to get a CT scan to rule out PE. Patient has been having cough and congestion for the past few days and has been taking DayQuil with little relief. Patient states she is also lost her voice. Patient states her chest hurts whenever she coughs. When she was at [facility] they noted that her heart rate was increased. Patient denies any recent long di stance travel, recent hospitalizations, recent surgeries, estrogen or control use, personal history of cancer, or family history of PE/DVT. Patient denies any history of asthma, COPD, or smoking. TRAVEL OUTSIDE OF THE [place] IN LAST 30 DAYS: No - Related Data Allergies/Adverse Reactions: lisinopril [Lisinopril] Allergy (Verified 11/07/19 17:31) swelling IVP dye Allergy (Uncoded 11/07/19 17:31) Hives Past Medical History - General Information source: Patient - Social History Smoking Status: Never Smoker Chew tobacco use (# tins/day): No Frequency of alcohol use: Occasional Drug Abuse: None Family History: Reviewed & Not Pertinent, DM, Hypertension Patient has suicidal ideation: No Patient has homicidal ideation: No - Past Medical History Cardiac Medical History: Reports: Hx Hypertension Neurological Medical History: Reports: Hx Seizures Endocrine Medical History: Reports: Hx Diabetes Mellitus Type 2 Renal/ Medical History: Denies: Hx Peritoneal Dialysis Psychiatric Medical History: Reports: Hx Bipolar Disorder, Hx Depression Past Surgical History: Reports: Hx Abdominal Surgery - gastric bypass 08/2014, Hx Breast Surgery - L lumpectomy, Hx Cholecystectomy, Hx Gastric Bypass Surgery - 2013, Hx Tubal Ligation - Immunizations Hx Diphtheria, Pertussis, Tetanus Vaccination: Yes Review of Systems - Review of Systems Notes: Constitutional: Negative for fever. HENT: Negative for sore throat. Eyes: Negative for visual changes. Cardiovascular: Positive for chest pain. Respiratory: Positive for shortness of breath and coughing. Gastrointestinal: Negative for abdominal pain, vomiting or diarrhea. Genitourinary: Negative for dysuria. Musculoskeletal: Negative for back pain. Skin: Negative for rash. Neurological: Negative for headaches, weakness or numbness. 10 point ROS negative except as marked above and in HPI. Physical Exam - Vital signs Vitals: Temp Pulse Resp BP Pulse Ox 98.9 F 102 H 30 H 142/85 H 100 11/07/19 17:11 11/07/19 17:11 11/07/19 17:11 11/07/19 17:11 11/07/19 17:11 - Notes Notes: GENERAL: Well-appearing, well-nourished and in no acute distress. HEAD: Atraumatic, normocephalic. EYES: Extraocular movements intact, sclera anicteric, conjunctiva are normal. ENT: Nares patent, oropharynx clear without exudates. Moist mucous membranes. Hoarse voice. NECK: Normal range of motion, supple without lymphadenopathy or JVD. LUNGS: And productive coughing. Breath sounds clear to auscultation bilaterally and equal. No wheezes rales or rhonchi. HEART: Regular rate and rhythm without murmurs, rubs or gallops. EXTREMITIES: Normal range of motion, no pitting or edema. No clubbing or cyanosis. NEUROLOGICAL: Cranial nerves II through XII grossly intact. Normal speech, normal gait. PSYCH: Normal mood, normal affect. SKIN: Warm, Dry, normal turgor, no rashes or lesions noted. Course - Re-evaluation Re-evalutation: 11/07/19 39-year-old nontoxic, well-appearing female presents for chest pain with coughing and dyspnea. Patient went to [facility] and was sent over to the ER to have a CT to rule out PE. At the clinic she was noted to have an elevated heart rate. Patient was mildly tachycardic upon presentation to the ER. Patient is not hypoxic. Initial work-up is reassuring with a negative troponin. EKG does not show any ST elevation. Chest x-ray is negative. CT a chest was ordered with Solu-Medrol and Benadryl to premedicate patient due to allergy of hives to IV dye. Discussed this with patient who agrees with plan of care. 11/07/19 22:29 CT chest negative for PE. However does show mild emphysema. Will treat pt as bronchitis and give close follow up with PCP. Strict return precautions given. Pt voices understanding and agrees with plan of care. - Vital Signs Vital signs: Temp Pulse Resp BP Pulse Ox 98.9 F 102 H 30 H 142/85 H 100 11/07/19 17:11 11/07/19 17:11 11/07/19 17:11 11/07/19 17:11 11/07/19 20:50 - Laboratory Result Diagrams: 11/07/19 18:14 11/07/19 18:14 Laboratory results interpreted by me: 11/07/19 11/07/19 11/07/19 18:14 18:14 18:14 Hgb 11.4 L Hct 34.7 L RDW 14.8 H Glucose 115 H Total Protein 8.5 H Urine Ketones 20 H Urine Urobilinogen 4.0 H Urine Ascorbic Acid 40 H Discharge - Discharge Clinical Impression: Acute bronchitis Qualifiers: Bronchitis organism: unspecified organism Qualified Code(s): J20.9 - Acute bronchitis, unspecified Dyspnea Qualifiers: Dyspnea type: shortness of breath Qualified Code(s): R06.02 - Shortness of breath; R06.00 - Dyspnea, unspecified; R06.01 - Orthopnea Condition: Stable Disposition: HOME, SELF-CARE Instructions: Bronchitis ([facility]) Additional Instructions: Your CT chest did not show a blood clot. Your chest x-ray did not show a pneumonia. Your labwork was reassuring today. Please take prednisone as prescribed and finish all doses even if you feel better, please note it will raise your blood sugars. Use inhaler as needed for shortness of breath. Use Tessalon Perles as prescribed for cough. Please follow up with your primary care doctor in 3-5 days. Return immediately to ER if you start having any worsening symptoms, including worsening shortness of breath, chest pain not with coughing, coughing up blood, fever, nausea/vomiting, abdominal pain, or any other symptoms that are concerning to you. Prescriptions: Benzonatate [Tessalon Perles 100 mg Capsule] 100 mg PO Q8HP PRN #40 capsule PRN Reason: Prednisone [Deltasone 20 mg Tablet] 1 tab PO BID 5 Days #10 tablet Albuterol Sulfate [Proair HFA Inhalation Aerosol 8.5 gm MDI] 2 puff IH Q4H PRN #1 mdi PRN Reason: Forms: Return to Work Referrals: KRISTIE MOMIN PA [Primary Care Provider] - Follow up in 3-5 days
--- NOTE | 2019-11-07 22:24 | RADIOLOGY REPORT (SQ) ---
CT angiogram chest with contrast on 11/07/2019 10:00 PM CLINICAL INDICATION: Chest pain, shortness of breath TECHNIQUE: Multiple axial images are obtained throughout the chest following the administration of IV contrast. Computer generated 3D reconstructions/MIPS were performed. This exam was performed according to our departmental dose-optimization program, which includes automated exposure control, adjustment of the mA and/or kV according to patient size and/or use of iterative reconstruction technique. Total DLP is 537.82 mGy*cm. COMPARISON: None FINDINGS: There is no thoracic aortic aneurysm or dissection. There is no pleural or pericardial effusion. The patient is status post gastric bypass surgery. The patient is status post cholecystectomy. Limited visualized upper abdomen is otherwise unremarkable. There is no thoracic adenopathy. There are no filling defects within the pulmonary arteries to suggest pulmonary embolus. Mild paraseptal emphysema is noted in the right lung apex. The lungs are otherwise clear. No bony abnormality is noted. IMPRESSION: 1. No evidence of pulmonary embolus. 2. No acute abnormality.
[2019-11-07 22:49] VITALS: BP 117/78
--- NOTE | 2019-11-08 09:17 | EKG REPORT ---
SEVERITY:- BORDERLINE ECG - SINUS OR ECTOPIC ATRIAL RHYTHM BORDERLINE T WAVE ABNORMALITIES : Confirmed by: Crystal Reilly 08-Nov-2019 09:17:30
== END 2019-11-07 22:51 | disposition home or self-care (01) ==
LOC: ER 17:07
DX: J20.9 Acute bronchitis, unspecified (principal); R06.02 Shortness of breath; R07.9 Chest pain, unspecified; R05 Cough; R09.81 Nasal congestion; I10 Essential (primary) hypertension; E11.9 Type 2 diabetes mellitus without complications
CPT/HCPCS: 93005; 99285; 96361; 96374; 96375; 36415; 84703; 85025; 80053; 81001; 84484; 71046; 71275; 93010; J1200; J2930; J7030